=== PATIENT | female | born 1970 | race Asian ===

== ENCOUNTER 2018-11-14 10:09 | Day surgery (SDC) | payer OTHER ==
[2018-11-14] MEDS ORDERED: PROPOFOL 100 ML (11:57)
[2018-11-14] MEDS ORDERED: ROCURONIUM 50 MG INJ (11:58)
[2018-11-14] MEDS ORDERED: LIDOCAINE 2% (SDV) 5 ML INJ (11:58)
[2018-11-14] MEDS ORDERED: FENTAnyl 50 MCG/ML VIAL ×3 (12:04→13:41)
[2018-11-14] MEDS ORDERED: CEFAZOLIN 1 GM INJ (12:05)
[2018-11-14] MEDS ORDERED: DEXAMETHASONE 4 MG/ML 5 ML INJ (12:05)
[2018-11-14] MEDS ORDERED: ONDANSETRON 4 MG INJ (12:05)
[2018-11-14] MEDS ORDERED: LABETALOL HCL 20MG INJ ×2 (12:30→12:34)
[2018-11-14] MEDS ORDERED: hydrALAzine 20 MG INJ (12:35)
[2018-11-14] MEDS: ROPIVACAINE 0.5 % 30 ML VIAL (13:30)
[2018-11-14] MEDS ORDERED: SOD CHLORIDE 0.9% 1,000 ML IV (13:31)
[2018-11-14] MEDS: FENTAnyl 50 MCG/ML VIAL IV (13:52)
[2018-11-14] MEDS: ONDANSETRON 4 MG INJ IV (13:52)
[2018-11-14] MEDS ORDERED: HYDROmorphONE 1 MG/5 ML IV SYRINGE IV ×3 (14:00)
[2018-11-14] MEDS ORDERED: OXYCODONE/ACETAMINOPHEN (5/325) TAB PO ×4 (14:00)
[2018-11-14] MEDS ORDERED: LABETALOL HCL 20MG INJ IV (14:00)
[2018-11-14] MEDS ORDERED: morphine 2 MG INJ IV (14:00)
[2018-11-14] MEDS ORDERED: MEPERIDINE 25 MG INJ IV (14:00)
[2018-11-14] MEDS ORDERED: KETOROLAC 30 MG INJ IV (14:00)
[2018-11-14] MEDS ORDERED: ALBUTEROL 0.083% (NEB) 2.5 MG/3 ML AMP HHN (14:00)
[2018-11-14] MEDS ORDERED: FENTAnyl 50 MCG/ML VIAL IV ×2 (14:00)
[2018-11-14] MEDS ORDERED: ONDANSETRON 4 MG INJ IV (14:00)
[2018-11-14] MEDS ORDERED: EPHEDrine SULFATE 50 MG/5 ML SYG IV (14:00)
[2018-11-14] MEDS ORDERED: hydrALAzine 20 MG INJ IV (14:00)
[2018-11-14] MEDS ORDERED: METOCLOPRAMIDE 10 MG INJ IV (14:00)
[2018-11-14] MEDS ORDERED: DIPHENHYDRAMINE 50 MG INJ IV (14:00)
== END 2018-11-14 17:00 | disposition home or self-care (01) ==
LOC: SDS 10:09
DX: S83.232A Complex tear of medial meniscus, current injury, left knee, initial encounter (principal); X58.XXXA Exposure to other specified factors, initial encounter; M94.262 Chondromalacia, left knee; E11.9 Type 2 diabetes mellitus without complications; I10 Essential (primary) hypertension; Z79.84 Long term (current) use of oral hypoglycemic drugs
CPT/HCPCS: 29881; 82962; 84703